=== PATIENT | female | born 1940 | race Hispanic/Latino ===

== ENCOUNTER 2024-08-31 13:42 | Emergency (ER) | payer MEDICARE ==
[~2024-08-31] VITALS: Ht 147.3 cm; Wt 90.7 kg
[~2024-08-31 13:42] MED LIST: CEPHALEXIN500 MG PO; PAXLOVID 300-11 EACH PO
[2024-08-31] MEDS ORDERED: LOSARTAN POTASS50 MG (14:08)
[2024-08-31] MEDS ORDERED: AMLODIPINE BESY10 MG (14:08)
[2024-08-31] MEDS ORDERED: METFORMIN HCL1000 MG (14:08)
[2024-08-31] MEDS ORDERED: PRAVASTATIN SOD40 MG (14:08)
[2024-08-31] MEDS ORDERED: JARDIANCE10 MG (14:08)
[2024-08-31] MEDS ORDERED: LEVOTHYROXINE25 MCG (14:08)
[2024-08-31] MEDS ORDERED: NOVOLOG100 UNITS1 (14:13)
[2024-08-31] MEDS ORDERED: BASAGLAR K100 UNIT/1 (14:13)
[2024-08-31 14:24] LABS: BASOPHILS # (AUTO) 0.1 (0.0-0.1); BASOPHILS % 0.7 % (0.0-1.0); EOSINOPHILS # (AUTO) 0.1 (0.0-0.4); EOSINOPHILS % 1.5 % (0.0-6.0); HEMATOCRIT 40.8 % (34.2-44.1); HEMOGLOBIN 13.2 g/dL (12.0-16.0); LYMPHOCYTES # (AUTO) 2.2 (1.0-3.2); LYMPHOCYTES % 24.8 % (18.0-39.1); MEAN CORPUSCULAR HEMOGLOBIN 29.1 pg (28-32); MEAN CORPUSCULAR HGB CONC 32.4 g/dL (31-35); MEAN CORPUSCULAR VOLUME 89.9 fL (81-99); MONOCYTES # (AUTO) 0.5 (0.2-0.8); MONOCYTES % 5.3 % (4.4-11.3); NEUTROPHILS # (AUTO) 6.1 (2.1-6.9); NEUTROPHILS % 67.4 % (38.7-80.0); PLATELET COUNT 246 x10e3/uL (140-360); RED BLOOD COUNT 4.54 x10e6/uL (3.6-5.1); RED CELL DISTRIBUTION WIDTH 12.8 % (11.7-14.4); WHITE BLOOD COUNT 9.05 x10e3/uL (4.8-10.8)
[2024-08-31] MEDS: SODIUM CHLORIDE 0.9% 1000ML 1,000 ML IV SCH (14:25)
[2024-08-31] MEDS: Morphine 4mg INJECTION 4 MG/ML INJ IV ONE (14:26)
[2024-08-31 14:40] LABS: ALBUMIN 4.2 g/dL (3.5-5.0); ALBUMIN/GLOBULIN RATIO 0.9 (0.8-2.0); BILIRUBIN,TOTAL 0.4 mg/dL (0.2-1.2); CALCIUM 10.5 mg/dL (8.4-10.2); CREATININE, SERUM 0.95 mg/dL (0.57-1.11); TOTAL PROTEIN 8.7 g/dL (6.5-8.1)
[2024-08-31 14:46] LABS: TROPONIN I 0.007 ng/mL (0-0.300)
[2024-08-31 15:52] LABS: CLARITY,URINE CLEAR (CLEAR); COLOR,URINE YELLOW (YELLOW); LEUKOCYTE ESTERASE ,URINE TRACE (NEGATIVE); PH,URINE 7 (5 - 7)
[2024-08-31 15:53] LABS: BILIRUBIN,URINE NEGATIVE (NEGATIVE); GLUCOSE, URINE 500 (NEGATIVE); KETONES,URINE NEGATIVE (NEGATIVE); NITRITE,URINE NEGATIVE (NEGATIVE); PROTEIN,URINE DIPSTICK NEGATIVE (NEGATIVE); URINE UROBILINOGEN 0.2 mg/dL (0.2 - 1)
[2024-08-31 16:01] LABS: BACTERIA,URINE FEW /HPF; EPITHELIAL CELLS,URINE FEW /LPF; RBC,URINE 0-5 /HPF (0-5)
[2024-08-31 18:33] VITALS: PULSE 79; RESP 13; TEMP 97.6; O2SAT 96
== END 2024-08-31 18:42 | disposition other institution (70) ==
LOC: ER 13:50
DX: R50.9 Fever, unspecified (principal); C25.7 Malignant neoplasm of other parts of pancreas; I10 Essential (primary) hypertension; E11.65 Type 2 diabetes mellitus with hyperglycemia; E78.5 Hyperlipidemia, unspecified; K21.9 Gastro-esophageal reflux disease without esophagitis; E03.9 Hypothyroidism, unspecified; R94.31 Abnormal electrocardiogram [ECG] [EKG]
CPT/HCPCS: 36415; 71045; 74177; 80053; 81001; 83605; 83690; 84484; 85025; 87040; 87086; 93005; 99284; J2270; J7030